=== PATIENT | male | born 1960 | race Caucasian/White ===

== ENCOUNTER → 2016-04-25 | Day surgery (SDC) | payer OTHER ==
[2016-04-20 11:06] LABS: ABSOLUTE BASOPHIL COUNT 0 /CUMM (0.0-0.2); ABSOLUTE EOSINOPHIL COUNT 0.1 /CUMM (0.0-0.7); ABSOLUTE GRANULOCYTE CT 2.3 /CUMM (1.4-6.5); ABSOLUTE LYMPH COUNT 2.4 /CUMM (1.2-3.4); ABSOLUTE MONOCYTE COUNT 0.5 /CUMM (0.10-0.60); BASOPHIL % 0.7 % (0.0-2.0); EOSINOPHIL % 1.8 % (0-5); HEMATOCRIT 41.8 % (42-52); MEAN CORPUSCULAR HGB 31.7 PG (27.0-31.0); MEAN CORPUSCULAR HGB CONC 34.7 G/DL (33.0-37.0); MEAN CORPUSCULAR VOLUME 91.3 FL (80.0-94.0); MEAN PLATELET VOLUME 9.2 FL (7.4-10.4); RBC DISTRIBUTION WIDTH 12.4 % (11.5-14.5); RED BLOOD CELL CT 4.58 /CUMM (4.70-6.10); WHITE BLOOD CELL COUNT 5.3 /CUMM (4.8-10.8)
[2016-04-20 11:22] LABS: GRANULOCYTE % 42.6 % (42.2-75.2); PLATELET COUNT 174 /CUMM (130-400)
[~2016-04-25] VITALS: Ht 175.3 cm; Wt 93.0 kg
[~2016-04-25] MED LIST: ASPIRIN EC81 M1 PO; ATIVAN1 M1 PO; CITALOPRAM HBR20 MG PO; LOVASTATIN20 M1 PO; METOPROLOL SUCC25 M1 PO; PREVACID15 M1 PO
--- NOTE | 2016-04-25 15:32 | Operative Report ---
Operative/Inv Procedure Report Surgery Date: 04/25/16 Name of Procedure: Laparoscopic bilateral inguinal hernia repair Pre-Operative Diagnosis: Bilateral inguinal hernia Post-Operative Diagnosis: Same Estimated Blood Loss: scant Surgeon/Knockout Man: EDILBERTO VENTURA,GALINA Orellana/Rahat PALOMINO Anesthesia: general endotracheal tube Implants: Parietex mesh Operative/Procedure Note Note: After informed consent patient brought to the operating room and laid supine. Gen. anesthesia was obtained and his abdomen was prepped and draped. The skin below the umbilicus was infiltrate local anesthesia transverse incision made sharply. We dissected down to the left side and incised the rectus fascia transversely. Stay sutures were placed and the rectus abdominis muscle, left- sided was retracted laterally. A plane behind it was developed with a peanut through which a dissecting balloon was placed. The balloon was inflated under direct vision the camera then deflated and replaced with a blunt Vinson port. Gas was instilled. 2, 5 mm ports were placed in the infraumbilical midline, after local anesthesia was instilled and under direct vision the camera. Began dissection at the pubis and delineated the symphysis. Shravan's ligament was identified. There is a very large direct hernia on the left side. Iliopubic tract was created and or structures dissected. There is no indirect hernia. We then placed a left-sided Parietex mesh into the cavity. His placed around the cord structures to re-create the internal ring and cover the femoral indirect spaces. I tacked along Shravan's ligament and superior medially. Then turned my attention to the right side. It is sore fashion coopers ligament was delineated. There was an even larger right-sided direct hernia. Again there was no indirect hernia. Once the dissection was completed a piece of right- sided mesh was placed as well. The side was also tacked medially along Shravan's ligament and superior medially. Once I was happy with the placement of both mesh the gas was allowed to escape on maintaining proper orientation of it. The fascia was closed 0 Vicryl suture. Skin incisions closed with 4-0 Vicryl. Steri-Strips and sterile dressing applied. Sponge and needle counts are correct Findings: Bilateral direct CC: PRITI VENTURA,MARKIE Guaman
== END ==
LOC: STS 01:42
PROVIDERS: Surgery
DX: K40.20 Bilateral inguinal hernia, without obstruction or gangrene, not specified as recurrent (principal); K21.9 Gastro-esophageal reflux disease without esophagitis; Z87.891 Personal history of nicotine dependence; E78.00 Pure hypercholesterolemia, unspecified
CPT/HCPCS: 36415; 93005; 93010; C1781; J0131; J0690; J1885; J2250